=== PATIENT | male | born 1935 | race Caucasian/White ===

== ENCOUNTER 2016-08-24 09:40 | Outpatient (RCR) | payer MEDICARE, MEDICAID ==
[2015-08-19 00:38] VITALS: BP 131/61
[~2016-08-24 09:40] MED LIST: ACTOS 45MG45 MG/TAB PO; AMLOPIDINE PO; ATIVAN0.5 MG PO; ATIVAN1 M1 PO; ATROVENT I0.2 MG/1 M INH; BROVANA15 MCG/2 M IH; BROVANA15 MCG/2 M INH; BYSTOLIC10 MG PO; BYSTOLIC20 MG PO; CLOPIDOGREL PO; CORTISPORIN TC10 ML OT; DITROPAN XL5 MG PO; ED ZITHROM6 TAB/BOTT PO; EFFEXOR XR150 M1 PO; EFFEXOR XR150 MG PO; FAMVIR500 MG PO; HYDROCHLOROTH12.5 M2 PO; IPRATROPIUM BROM3 M1 IH; IPRATROPIUM BROM3 M1 INH; KENALOG0.5% TP; LANTUS PEN100 U/ML SC; LANTUS SOLOS100 U/ML SQ; LIPITOR20 MG PO; LISINOPRIL20 MG PO; LOTRISONE 0.05%1 CRE TP; MICROZIDE12.5 MG PO; NEXIUM 24HR20 MG PO; NEXIUM40 MG PO; NITROSTAT0.4 M1 SL; NORVASC 10MG10 MG PO; NORVASC 5MG5 MG/TAB PO; PLAVIX 75MG TAB75 MG PO; PREDNISONE20 M1 PO; PREDNISONE20 MG PO; PRINIVIL20 MG PO; PULMICORT0.5 MG/2 M INH; REMERON 15M15 MG/TA1 PO; SPIRIVA18 MCG IH; ZITHROMAX 250M250 MG PO
== END 2016-09-21 13:24 ==
LOC: OPPGERO 09:40
DX: F32.1 Major depressive disorder, single episode, moderate (principal)

== ENCOUNTER → 2016-11-19 | Outpatient (CLI) | payer MEDICARE, BC, MEDICAID | LOC: LAB 06:10 | DX: I10 Essential (primary) hypertension (principal); E11.40 Type 2 diabetes mellitus with diabetic neuropathy, unspecified ==

== ENCOUNTER → 2017-03-16 | Outpatient (CLI) | payer MEDICARE, BC, MEDICAID ==
[2015-08-19 00:38] VITALS: BP 131/61
== END ==
LOC: LAB 05:35
DX: I25.10 Atherosclerotic heart disease of native coronary artery without angina pectoris (principal); E11.9 Type 2 diabetes mellitus without complications; I10 Essential (primary) hypertension; Z12.5 Encounter for screening for malignant neoplasm of prostate

== ENCOUNTER → 2017-04-29 | Outpatient (CLI) | payer MEDICARE, MEDICAID ==
[2015-08-19 00:38] VITALS: BP 131/61
== END ==
LOC: LAB 06:15
DX: I10 Essential (primary) hypertension (principal)

== ENCOUNTER → 2017-05-20 | Outpatient (CLI) | payer MEDICARE, MEDICAID ==
[2015-08-19 00:38] VITALS: BP 131/61
== END ==
LOC: CARDREHAB 09:56
DX: G47.33 Obstructive sleep apnea (adult) (pediatric) (principal); R06.83 Snoring; R09.02 Hypoxemia; E66.9 Obesity, unspecified; Z68.38 Body mass index [BMI] 38.0-38.9, adult
CPT/HCPCS: G0399

== ENCOUNTER → 2017-07-13 | Outpatient (CLI) | payer MEDICARE, MEDICAID ==
[2015-08-19 00:38] VITALS: BP 131/61
[2017-07-13 07:59] LABS: HEMATOCRIT 36.8 % (42.0-52.0); HEMOGLOBIN 11.7 g/dL (13.5-18.0); MEAN CELL VOLUME 88 fl (78-100); MEAN CORPUSCULAR HEMOGLOBIN 28 pg (27-31); MEAN CORPUSCULAR HGB CONC 32 g/dL (33-37); MEAN PLATELET VOLUME 10.7 fl (7.4-10.4); PLATELET COUNT 256 K/mm3 (130-400); RED BLOOD COUNT 4.18 M/mm3 (4.20-5.60); RED CELL DISTRIBUTION WIDTH 16.7 % (11.5-14.5); WHITE BLOOD COUNT 6.4 K/mm3 (4.8-10.8)
[2017-07-13 08:01] LABS: ALBUMIN 3.3 g/dL (3.5-5.0); BUN/CREATININE RATIO 25.5 (6.0-26.0); POTASSIUM 4.2 mmol/L (3.6-5.0); TOTAL BILIRUBIN 0.4 mg/dL (0.2-1.3)
[2017-07-13 08:34] LABS: LYMPHOCYTE 10 % (20-51); MONOCYTE 8 % (3-10); NEUTROPHILS 75 % (42-75); OVALOCYTES 1+
== END ==
LOC: LAB 06:30
PROVIDERS: Internal Medicine
DX: E11.9 Type 2 diabetes mellitus without complications (principal); I25.10 Atherosclerotic heart disease of native coronary artery without angina pectoris; I10 Essential (primary) hypertension

== ENCOUNTER 2017-09-27 10:18 | Emergency (ER) | payer MEDICARE, MEDICAID ==
[~2017-09-27] VITALS: Wt 97.2 kg
[~2017-09-27 10:18] MED LIST changes: -ADVAIR DISKUS1 DS2 IH; -ALBUTEROL1.25 MG/3 IH; -BENZONATATE100 M2 PO; -CATAPRES0.2 M1 PO; -COLACE100 M1 PO; -DULCOLAX S10 MG/SUPP RC; -FIBERCON625 M1 PO; -GOOD NEIGH1200 MG/15 PO; -GOOD NEIGHBOR500 M2 PO; -LANTUS PEN100 U/ML; -LIPITOR20 M2 PO; -MIRALAX17 GM PO; -MUCINEX1200 MG PO; -MULTIVITAMIN1 SGL; -NEXIUM 40MG40 MG PO; -SINEMET 25-1001 EACH PO; -TYLENOL 325MG325 MG PO
[2017-09-27 13:27] LABS: URINE APPEARANCE CLEAR; URINE BILIRUBIN NEGATIVE (NEGATIVE); URINE BLOOD NEGATIVE (NEGATIVE); URINE COLOR YELLOW; URINE GLUCOSE NEGATIVE (NEGATIVE); URINE KETONE NEGATIVE (NEGATIVE); URINE LEUKOCYTE ESTERASE NEGATIVE (NEGATIVE); URINE MUCUS PRESENT (NOT PRESENT); URINE NITRATE NEGATIVE (NEGATIVE); URINE PROTEIN(semi-quant) 1+ mg/dL (NEGATIVE); URINE UROBILINOGEN NORMAL (NORMAL)
[2017-09-27] MEDS ORDERED: GOOD NEIGHBOR500 M2 PO (14:07)
[2017-09-27] MEDS ORDERED: ALBUTEROL1.25 MG/3 IH (14:08)
[2017-09-27] MEDS ORDERED: BENZONATATE100 M2 PO (14:10)
[2017-09-27] MEDS ORDERED: COLACE100 M1 PO (14:13)
[2017-09-27] MEDS ORDERED: CATAPRES0.2 M1 PO (14:13)
[2017-09-27] MEDS ORDERED: DULCOLAX S10 MG/SUPP RC (14:14)
[2017-09-27] MEDS ORDERED: FIBERCON625 M1 PO (14:15)
[2017-09-27] MEDS ORDERED: PREDNISONE20 MG PO (14:26)
[2017-09-27] MEDS ORDERED: IPRATROPIUM BROM3 M1 IH (14:26)
[2017-09-27] MEDS ORDERED: ADVAIR DISKUS1 DS2 IH (14:41)
[2017-09-27] MEDS ORDERED: HYDROCHLOROTH12.5 M2 PO (14:42)
[2017-09-27] MEDS ORDERED: LANTUS PEN100 U/ML (14:43)
[2017-09-27] MEDS ORDERED: GOOD NEIGH1200 MG/15 PO (14:44)
[2017-09-27] MEDS ORDERED: LIPITOR20 M2 PO (14:44)
[2017-09-27] MEDS ORDERED: MUCINEX1200 MG PO (14:45)
[2017-09-27] MEDS ORDERED: MIRALAX17 GM PO (14:45)
[2017-09-27] MEDS ORDERED: NEXIUM 40MG40 MG PO (14:46)
[2017-09-27] MEDS ORDERED: MULTIVITAMIN1 SGL (14:46)
[2017-09-27] MEDS ORDERED: SINEMET 25-1001 EACH PO (14:47)
[2017-09-27] MEDS ORDERED: TYLENOL 325MG325 MG PO (14:47)
[2017-09-27] MEDS ORDERED: LISINOPRIL20 MG PO (14:49)
[2017-09-27 15:10] VITALS: BP 160/75
== END 2017-09-27 15:28 | disposition home or self-care (01) ==
LOC: ED 10:18
PROVIDERS: Physician Assistant
DX: J43.9 Emphysema, unspecified (principal); Z99.81 Dependence on supplemental oxygen; I25.10 Atherosclerotic heart disease of native coronary artery without angina pectoris; I10 Essential (primary) hypertension; F32.9 Major depressive disorder, single episode, unspecified; F41.9 Anxiety disorder, unspecified; E11.40 Type 2 diabetes mellitus with diabetic neuropathy, unspecified; E78.5 Hyperlipidemia, unspecified; N40.0 Benign prostatic hyperplasia without lower urinary tract symptoms; Z88.5 Allergy status to narcotic agent; Z88.0 Allergy status to penicillin; Z88.2 Allergy status to sulfonamides; Z88.8 Allergy status to other drugs, medicaments and biological substances; Z79.02 Long term (current) use of antithrombotics/antiplatelets; Z79.4 Long term (current) use of insulin
CPT/HCPCS: A4340; A4354

== ENCOUNTER → 2017-09-27 | Outpatient (CLI) | payer MEDICARE, MEDICAID ==
[2015-08-19 00:38] VITALS: BP 131/61
[~2017-09-27] MED LIST changes: +ACTOS 15MG TAB15 MG PO; -ACTOS 45MG45 MG/TAB PO; +ADVAIR DISKUS1 DS2 IH; +ALBUTEROL1.25 MG/3 IH; +ATROVENT I0.2 MG/1 M IH; -ATROVENT I0.2 MG/1 M INH; +BENZONATATE100 M2 PO; +CATAPRES0.2 M1 PO; +COLACE100 M1 PO; +DULCOLAX S10 MG/SUPP RC; -EFFEXOR XR150 M1 PO; +EFFEXOR XR75 M2 PO; +FIBERCON625 M1 PO; +GOOD NEIGH1200 MG/15 PO; +GOOD NEIGHBOR500 M2 PO; +LANTUS PEN100 U/ML; +LIPITOR20 M2 PO; +MIRALAX17 GM PO; +MUCINEX1200 MG PO; +MULTIVITAMIN1 SGL; +NEXIUM 40MG40 MG PO; +SINEMET 25-1001 EACH PO; +TYLENOL 325MG325 MG PO
[2017-09-27 08:04] LABS: HEMATOCRIT 36.7 % (42.0-52.0); HEMOGLOBIN 11.6 g/dL (13.5-18.0); MEAN CELL VOLUME 90 fl (78-100); MEAN CORPUSCULAR HEMOGLOBIN 28 pg (27-31); MEAN CORPUSCULAR HGB CONC 32 g/dL (33-37); MEAN PLATELET VOLUME 10.7 fl (7.4-10.4); PLATELET COUNT 212 K/mm3 (130-400); RED BLOOD COUNT 4.08 M/mm3 (4.20-5.60); RED CELL DISTRIBUTION WIDTH 16.4 % (11.5-14.5); WHITE BLOOD COUNT 6.9 K/mm3 (4.8-10.8)
[2017-09-27 08:08] LABS: LYMPHOCYTE 8 % (20-51); MONOCYTE 4 % (3-10); NEUTROPHILS 82 % (42-75)
[2017-09-27 08:31] LABS: ALBUMIN 3.4 g/dL (3.5-5.0); BUN/CREATININE RATIO 18.6 (6.0-26.0); CALCIUM 8.7 mg/dL (8.4-10.2); POTASSIUM 3.8 mmol/L (3.6-5.0); TOTAL BILIRUBIN 0.3 mg/dL (0.2-1.3); TOTAL PROTEIN 6.3 g/dL (6.3-8.2)
== END ==
LOC: LAB 05:55
PROVIDERS: Internal Medicine
DX: I25.10 Atherosclerotic heart disease of native coronary artery without angina pectoris (principal); E11.9 Type 2 diabetes mellitus without complications; I10 Essential (primary) hypertension; J43.1 Panlobular emphysema; Z88.6 Allergy status to analgesic agent; Z88.0 Allergy status to penicillin; Z88.2 Allergy status to sulfonamides; Z88.8 Allergy status to other drugs, medicaments and biological substances

== ENCOUNTER → 2017-10-14 | Outpatient (CLI) | payer MEDICARE, MEDICAID ==
[2017-09-27 15:10] VITALS: BP 160/75
[~2017-10-14] MED LIST changes: +ADVAIR DISKUS1 DS2 IH; +ALBUTEROL1.25 MG/3 IH; -ATROVENT I0.2 MG/1 M IH; +ATROVENT NASAL15 ML IH; +AVEENO BATH1 EACH TP; +BENZONATATE100 M2 PO; +CATAPRES0.2 M1 PO; +CIPRO500 M1 PO; +COLACE100 M1 PO; +CYCLOBENZAPRINE10 M1 PO; +DULCOLAX S10 MG/SUPP RC; +FIBERCON625 M1 PO; +GOOD NEIGH1200 MG/15 PO; +ICY HOT CREAM35.4 GM TOP; +LANTUS PEN100 U/ML; +LIPITOR20 M2 PO; +MIRALAX17 GM PO; +MUCINEX1200 MG PO; +MULTIVITAMIN1 SGL; +NEXIUM 40MG40 MG PO; +SINEMET 25-1001 EACH PO; +TOPCARE PAIN R325 MG PO; +TYLENOL 500MG500 MG PO; +VIBRAMYCIN HYC100 MG PO
[2017-10-15 01:03] LABS: URINE APPEARANCE CLOUDY; URINE BILIRUBIN NEGATIVE (NEGATIVE); URINE BLOOD TRACE (NEGATIVE); URINE COLOR YELLOW; URINE GLUCOSE NEGATIVE (NEGATIVE); URINE KETONE NEGATIVE (NEGATIVE); URINE NITRATE NEGATIVE (NEGATIVE); URINE PROTEIN(semi-quant) TRACE mg/dL (NEGATIVE); URINE UROBILINOGEN NORMAL (NORMAL)
[2017-10-15 01:04] LABS: URINE LEUKOCYTE ESTERASE 2+ (NEGATIVE); URINE WBC >50 /hpf (0-3)
== END ==
LOC: LAB 23:00
PROVIDERS: Internal Medicine
DX: N39.0 Urinary tract infection, site not specified (principal); B96.89 Other specified bacterial agents as the cause of diseases classified elsewhere

== ENCOUNTER 2017-10-16 07:24 | Emergency (ER) | payer MEDICARE, MEDICAID ==
[~2017-10-16 07:24] MED LIST changes: -AVEENO BATH1 EACH TP; -CIPRO500 M1 PO; -CYCLOBENZAPRINE10 M1 PO; -ICY HOT CREAM35.4 GM TOP; -VIBRAMYCIN HYC100 MG PO
[2017-10-16] MEDS ORDERED: CIPRO500 M1 PO (07:40)
[2017-10-16] MEDS ORDERED: LIPITOR20 M2 PO (07:42)
[2017-10-16] MEDS ORDERED: CYCLOBENZAPRINE10 M1 PO (08:47)
[2017-10-16 09:18] VITALS: BP 186/83
[2017-10-17] MEDS ORDERED: AVEENO BATH1 EACH TP (17:39)
[2017-10-17] MEDS ORDERED: VIBRAMYCIN HYC100 MG PO (17:44)
[2017-10-17] MEDS ORDERED: ICY HOT CREAM35.4 GM TOP (17:47)
[2017-10-17] MEDS ORDERED: NEXIUM 40MG40 MG PO (17:59)
== END 2017-10-16 09:08 ==
LOC: ED 07:24
DX: M54.2 Cervicalgia (principal); M62.838 Other muscle spasm; Z88.5 Allergy status to narcotic agent; Z88.0 Allergy status to penicillin; Z88.2 Allergy status to sulfonamides; Z88.8 Allergy status to other drugs, medicaments and biological substances; N39.0 Urinary tract infection, site not specified; Z79.02 Long term (current) use of antithrombotics/antiplatelets

== ENCOUNTER 2017-10-17 15:18 | Emergency (ER) | payer MEDICARE, MEDICAID ==
[~2017-10-17] VITALS: Wt 92.5 kg
[~2017-10-17 15:18] MED LIST changes: +CIPRO500 M1 PO; +CYCLOBENZAPRINE10 M1 PO
[2017-10-17 17:31] LABS: HEMATOCRIT 38.7 % (42.0-52.0); HEMOGLOBIN 12.4 g/dL (13.5-18.0); MEAN CELL VOLUME 90 fl (78-100); MEAN CORPUSCULAR HEMOGLOBIN 29 pg (27-31); MEAN CORPUSCULAR HGB CONC 32 g/dL (33-37); MEAN PLATELET VOLUME 10.6 fl (7.4-10.4); PLATELET COUNT 283 K/mm3 (130-400); RED BLOOD COUNT 4.32 M/mm3 (4.20-5.60); RED CELL DISTRIBUTION WIDTH 16.1 % (11.5-14.5); WHITE BLOOD COUNT 16.1 K/mm3 (4.8-10.8)
[2017-10-17 17:37] LABS: ALBUMIN 3.6 g/dL (3.5-5.0); CALCIUM 8.6 mg/dL (8.4-10.2); POTASSIUM 4.4 mmol/L (3.6-5.0); TOTAL BILIRUBIN 0.5 mg/dL (0.2-1.3); TOTAL PROTEIN 7.4 g/dL (6.3-8.2)
[2017-10-17] MEDS ORDERED: AVEENO BATH1 EACH TP (17:39)
[2017-10-17] MEDS ORDERED: VIBRAMYCIN HYC100 MG PO (17:44)
[2017-10-17] MEDS ORDERED: ICY HOT CREAM35.4 GM TOP (17:47)
[2017-10-17 17:59] LABS: LYMPHOCYTE 5 % (20-51); MONOCYTE 4 % (3-10); NEUTROPHILS 91 % (42-75)
[2017-10-17] MEDS ORDERED: NEXIUM 40MG40 MG PO (17:59)
[2017-10-17 19:48] LABS: URINE APPEARANCE CLOUDY; URINE COLOR YELLOW; URINE PROTEIN(semi-quant) 2+ mg/dL (NEGATIVE)
[2017-10-17 19:49] LABS: URINE BILIRUBIN NEGATIVE (NEGATIVE); URINE BLOOD 250 ery/uL (NEGATIVE); URINE GLUCOSE NEGATIVE (NEGATIVE); URINE KETONE NEGATIVE (NEGATIVE); URINE LEUKOCYTE ESTERASE 2+ (NEGATIVE); URINE NITRATE NEGATIVE (NEGATIVE); URINE UROBILINOGEN NORMAL (NORMAL); URINE WBC >50 /hpf (0-3)
[2017-10-17 20:30] VITALS: BP 137/50
== END 2017-10-17 21:20 | disposition short-term general hospital (02) ==
LOC: ED 15:18
PROVIDERS: Nurse Practitioner Primary Care
DX: N39.0 Urinary tract infection, site not specified (principal); B95.62 Methicillin resistant Staphylococcus aureus infection as the cause of diseases classified elsewhere; M54.2 Cervicalgia; I25.10 Atherosclerotic heart disease of native coronary artery without angina pectoris; I10 Essential (primary) hypertension; E11.9 Type 2 diabetes mellitus without complications; J44.9 Chronic obstructive pulmonary disease, unspecified; Z86.73 Personal history of transient ischemic attack (TIA), and cerebral infarction without residual deficits; F41.9 Anxiety disorder, unspecified; E78.5 Hyperlipidemia, unspecified; Z88.0 Allergy status to penicillin; Z88.2 Allergy status to sulfonamides; Z79.02 Long term (current) use of antithrombotics/antiplatelets; Z88.5 Allergy status to narcotic agent; Z88.8 Allergy status to other drugs, medicaments and biological substances; Z79.4 Long term (current) use of insulin
CPT/HCPCS: J3010; J3370; J7030; J7050

== ENCOUNTER 2017-10-26 13:56 | Inpatient (IN) | payer MEDICARE, MEDICAID ==
[~2017-10-26] VITALS: Ht 170.2 cm; Wt 204.0 kg
[~2017-10-26 13:56] MED LIST changes: +AVEENO BATH1 EACH TP; +ICY HOT CREAM35.4 GM TOP; +VIBRAMYCIN HYC100 MG PO
[2017-10-26] MEDS ORDERED: FLOMAX0.4 MG PO (14:36)
[2017-10-26] MEDS ORDERED: NOVOLOG 100U100 U/ML SQ (14:36)
[2017-10-26 14:37] VITALS: BP 129/63
[2017-10-26] MEDS ORDERED: TYLENOL 325MG325 MG PO (14:37)
[2017-10-26] MEDS ORDERED: LANTUS PEN100 U/ML SQ (14:37)
[2017-10-26] MEDS ORDERED: AMLODIPINE BESY10 MG PO (14:38)
[2017-10-26] MEDS ORDERED: IPRATROPIUM BROM3 M1 IH (14:38)
[2017-10-26] MEDS ORDERED: ATORVASTATIN CA20 MG PO (14:39)
[2017-10-26] MEDS ORDERED: BROVANA15 MCG/2 M IH (14:40)
[2017-10-26] MEDS ORDERED: BUDESONIDE0.5 MG/2 M IH (14:40)
[2017-10-26] MEDS ORDERED: BYSTOLIC20 MG PO (14:40)
[2017-10-26] MEDS ORDERED: COLACE100 M1 PO (14:42)
[2017-10-26] MEDS ORDERED: MIRALAX17 GM PO (14:45)
[2017-10-26 15:37] VITALS: BP 129/63
[2017-10-26 16:53] LABS: BUN/CREATININE RATIO 17.9 (6.0-26.0); CALCIUM 8.7 mg/dL (8.4-10.2); POTASSIUM 4.1 mmol/L (3.6-5.0)
[2017-10-26 17:12] LABS: HEMATOCRIT 33.2 % (42.0-52.0); HEMOGLOBIN 10.6 g/dL (13.5-18.0); MEAN CELL VOLUME 90 fl (78-100); MEAN CORPUSCULAR HEMOGLOBIN 29 pg (27-31); MEAN CORPUSCULAR HGB CONC 32 g/dL (33-37); MEAN PLATELET VOLUME 9.9 fl (7.4-10.4); RED CELL DISTRIBUTION WIDTH 15.1 % (11.5-14.5); WHITE BLOOD COUNT 8.1 K/mm3 (4.8-10.8)
[2017-10-26 18:44] VITALS: BP 152/70
[2017-10-26 20:38] LABS: PLATELET COUNT 575 K/mm3 (130-400)
[2017-10-26 20:53] LABS: LYMPHOCYTE 11 % (20-51); MONOCYTE 5 % (3-10); NEUTROPHILS 83 % (42-75)
[2017-10-26 20:54] LABS: HYPOCHROMIA 1+
[2017-10-27 06:23] VITALS: BP 164/75
[2017-10-27 18:32] VITALS: BP 113/43
[2017-10-28 06:25] VITALS: BP 126/58
[2017-10-28 07:49] LABS: URINE APPEARANCE CLOUDY; URINE BILIRUBIN NEGATIVE (NEGATIVE); URINE COLOR YELLOW; URINE GLUCOSE NEGATIVE (NEGATIVE); URINE KETONE NEGATIVE (NEGATIVE); URINE NITRATE NEGATIVE (NEGATIVE); URINE PROTEIN(semi-quant) TRACE mg/dL (NEGATIVE); URINE UROBILINOGEN NORMAL (NORMAL)
[2017-10-28 07:50] LABS: URINE BLOOD TRACE (NEGATIVE); URINE LEUKOCYTE ESTERASE TRACE (NEGATIVE); URINE WBC 31-50 /hpf (0-3)
[2017-10-28 13:18] VITALS: BP 126/58
== END 2017-10-28 14:26 | DRG 948 ==
LOC: MED/SURG 13:56
PROVIDERS: Nurse Practitioner Primary Care; ADMIT Internal Medicine
DX: R53.81 Other malaise (principal); M46.22 Osteomyelitis of vertebra, cervical region; E11.9 Type 2 diabetes mellitus without complications; I10 Essential (primary) hypertension; J44.9 Chronic obstructive pulmonary disease, unspecified; G20 Parkinson's disease; Z86.73 Personal history of transient ischemic attack (TIA), and cerebral infarction without residual deficits; Z79.4 Long term (current) use of insulin; Z87.891 Personal history of nicotine dependence; Z88.0 Allergy status to penicillin
CPT/HCPCS: J1815; J3370; J7050

== ENCOUNTER → 2017-12-16 | Outpatient (CLI) | payer MEDICARE, MEDICAID ==
[~2017-12-16] MED LIST changes: +AMLODIPINE BESY10 MG PO; +ATORVASTATIN CA20 MG PO; +BUDESONIDE0.5 MG/2 M IH; +FLOMAX0.4 MG PO; +LANTUS PEN100 U/ML SQ; +NOVOLOG 100U100 U/ML SQ; +TYLENOL 325MG325 MG PO
[2017-12-16 14:22] LABS: FOLATE (FOLIC ACID) 5.7 ng/mL (7.0-31.4)
== END ==
LOC: LAB 06:30
PROVIDERS: Psychiatry & Neurology Neurology
DX: G31.84 Mild cognitive impairment of uncertain or unknown etiology (principal); G20 Parkinson's disease

== ENCOUNTER → 2017-12-16 | Outpatient (CLI) | payer MEDICARE, MEDICAID ==
[~2017-12-16] VITALS: Ht 170.2 cm; Wt 204.0 kg
[2017-12-16 09:55] VITALS: BP 136/62
== END ==
LOC: AMSURD 09:49
DX: Z45.2 Encounter for adjustment and management of vascular access device (principal)

== ENCOUNTER 2017-12-27 09:19 | Outpatient (RCR) | payer MEDICARE, MEDICAID ==
[2017-12-16 09:55] VITALS: BP 136/62
== END 2018-01-19 13:46 ==
LOC: OPPGERO 09:19
DX: F33.1 Major depressive disorder, recurrent, moderate (principal); I10 Essential (primary) hypertension; J44.9 Chronic obstructive pulmonary disease, unspecified; E11.40 Type 2 diabetes mellitus with diabetic neuropathy, unspecified; Z87.891 Personal history of nicotine dependence; Z79.899 Other long term (current) drug therapy

== ENCOUNTER → 2017-12-28 | Outpatient (CLI) | payer MEDICARE, MEDICAID ==
[2017-12-16 09:55] VITALS: BP 136/62
== END ==
LOC: RAD 07:45 → LAB 07:52 → RAD 07:52
DX: M46.42 Discitis, unspecified, cervical region (principal); M48.02 Spinal stenosis, cervical region; R60.0 Localized edema

== ENCOUNTER 2018-01-20 10:51 | Outpatient (RCR) | payer MEDICARE, MEDICAID ==
[2017-12-16 09:55] VITALS: BP 136/62
[~2018-01-20 10:51] MED LIST changes: +PRINIVIL10 M1 PO
[2018-02-15] MEDS ORDERED: GOOD NEIGHBOR500 M2 PO (17:20)
[2018-02-15] MEDS ORDERED: ADVAIR DISKUS1 DS2 IH (17:21)
[2018-02-15] MEDS ORDERED: ATIVAN1 M1 PO (17:22)
[2018-02-15] MEDS ORDERED: ATROVENT I0.2 MG/1 M IH (17:24)
[2018-02-15] MEDS ORDERED: AVEENO BATH1 EACH TOP (17:25)
[2018-02-15] MEDS ORDERED: BETAMETHASONE D0.05% TOP (17:26)
[2018-02-15] MEDS ORDERED: DULCOLAX S10 MG/SUPP RC (17:28)
[2018-02-15] MEDS ORDERED: FIBERCON625 M1 PO (17:29)
[2018-02-15] MEDS ORDERED: LEVEMIR FLEX100 U/ML SQ (17:30)
[2018-02-15] MEDS ORDERED: LOTRISONE CREAM15 G1 TOP (17:32)
[2018-02-15] MEDS ORDERED: MICONAZOLE NITR15 GM TOP (17:33)
[2018-02-15] MEDS ORDERED: ICY HOT CREAM35.4 GM TOP (17:33)
[2018-02-15] MEDS ORDERED: MUCINEX 60600 MG/TA1 PO (17:34)
[2018-02-15] MEDS ORDERED: MULTIVITAMIN1 SGL PO (17:35)
[2018-02-15] MEDS ORDERED: MEMANTINE HCL10 MG PO (17:36)
[2018-02-15] MEDS ORDERED: ULTRAM50 M1 PO (17:42)
[2018-02-15] MEDS ORDERED: VENLAFAXINE HYD75 MG PO (17:43)
== END 2018-02-17 13:09 ==
LOC: OPPGERO 10:51
DX: F33.1 Major depressive disorder, recurrent, moderate (principal); E11.40 Type 2 diabetes mellitus with diabetic neuropathy, unspecified; Z79.4 Long term (current) use of insulin; J44.9 Chronic obstructive pulmonary disease, unspecified; I10 Essential (primary) hypertension; G47.30 Sleep apnea, unspecified; Z79.899 Other long term (current) drug therapy; Z63.4 Disappearance and death of family member; Z60.0 Problems of adjustment to life-cycle transitions; Z63.79 Other stressful life events affecting family and household; Z87.891 Personal history of nicotine dependence

== ENCOUNTER → 2018-01-27 | Outpatient (CLI) | payer MEDICARE, MEDICAID ==
[2017-12-16 09:55] VITALS: BP 136/62
[~2018-01-27] MED LIST changes: -PRINIVIL10 M1 PO
[2018-01-27 10:10] LABS: HEMATOCRIT 33.6 % (42.0-52.0); HEMOGLOBIN 10.7 g/dL (13.5-18.0); MEAN CELL VOLUME 91 fl (78-100); MEAN CORPUSCULAR HEMOGLOBIN 29 pg (27-31); MEAN CORPUSCULAR HGB CONC 32 g/dL (33-37); MEAN PLATELET VOLUME 9.8 fl (7.4-10.4); PLATELET COUNT 318 K/mm3 (130-400); RED CELL DISTRIBUTION WIDTH 15.5 % (11.5-14.5); WHITE BLOOD COUNT 7.7 K/mm3 (4.8-10.8)
[2018-01-27 10:36] LABS: ALBUMIN 3.9 g/dL (3.5-5.0); BUN/CREATININE RATIO 14.9 (6.0-26.0); CALCIUM 8.5 mg/dL (8.4-10.2); POTASSIUM 4.1 mmol/L (3.6-5.0); TOTAL BILIRUBIN 0.4 mg/dL (0.2-1.3); TOTAL PROTEIN 7.6 g/dL (6.3-8.2)
[2018-01-27 10:45] LABS: URINE APPEARANCE HAZY; URINE COLOR YELLOW; URINE GLUCOSE NEGATIVE (NEGATIVE); URINE PROTEIN(semi-quant) TRACE mg/dL (NEGATIVE)
[2018-01-27 10:46] LABS: URINE BILIRUBIN NEGATIVE (NEGATIVE); URINE BLOOD TRACE (NEGATIVE); URINE KETONE NEGATIVE (NEGATIVE); URINE LEUKOCYTE ESTERASE 2+ (NEGATIVE); URINE NITRATE NEGATIVE (NEGATIVE); URINE UROBILINOGEN NORMAL (NORMAL); URINE WBC >50 /hpf (0-3)
[2018-01-27 10:51] LABS: LYMPHOCYTE 7 % (20-51); MONOCYTE 8 % (3-10); NEUTROPHILS 77 % (42-75)
== END ==
LOC: LAB 09:46
PROVIDERS: Internal Medicine
DX: I25.10 Atherosclerotic heart disease of native coronary artery without angina pectoris (principal); E11.9 Type 2 diabetes mellitus without complications; B99.9 Unspecified infectious disease

== ENCOUNTER 2018-02-15 16:41 | Emergency (ER) | payer MEDICARE, MEDICAID ==
[~2018-02-15] VITALS: Wt 93.0 kg
[~2018-02-15 16:41] MED LIST changes: +PRINIVIL10 M1 PO
[2018-02-15 17:15] LABS: HEMATOCRIT 31.7 % (42.0-52.0); MEAN CELL VOLUME 90 fl (78-100); MEAN CORPUSCULAR HEMOGLOBIN 28 pg (27-31); MEAN CORPUSCULAR HGB CONC 32 g/dL (33-37); MEAN PLATELET VOLUME 10.1 fl (7.4-10.4); PLATELET COUNT 282 K/mm3 (130-400); RED BLOOD COUNT 3.54 M/mm3 (4.20-5.60); WHITE BLOOD COUNT 10.8 K/mm3 (4.8-10.8)
[2018-02-15] MEDS ORDERED: GOOD NEIGHBOR500 M2 PO (17:20)
[2018-02-15] MEDS ORDERED: ADVAIR DISKUS1 DS2 IH (17:21)
[2018-02-15] MEDS ORDERED: ATIVAN1 M1 PO (17:22)
[2018-02-15] MEDS ORDERED: ATROVENT I0.2 MG/1 M IH (17:24)
[2018-02-15] MEDS ORDERED: AVEENO BATH1 EACH TOP (17:25)
[2018-02-15] MEDS ORDERED: BETAMETHASONE D0.05% TOP (17:26)
[2018-02-15 17:27] LABS: ALBUMIN 3.5 g/dL (3.5-5.0); BUN/CREATININE RATIO 19.9 (6.0-26.0); CALCIUM 8.1 mg/dL (8.4-10.2); POTASSIUM 4.2 mmol/L (3.6-5.0); TOTAL BILIRUBIN 0.2 mg/dL (0.2-1.3); TOTAL PROTEIN 7.3 g/dL (6.3-8.2)
[2018-02-15] MEDS ORDERED: DULCOLAX S10 MG/SUPP RC (17:28)
[2018-02-15] MEDS ORDERED: FIBERCON625 M1 PO (17:29)
[2018-02-15] MEDS ORDERED: LEVEMIR FLEX100 U/ML SQ (17:30)
[2018-02-15] MEDS ORDERED: LOTRISONE CREAM15 G1 TOP (17:32)
[2018-02-15] MEDS ORDERED: MICONAZOLE NITR15 GM TOP (17:33)
[2018-02-15] MEDS ORDERED: ICY HOT CREAM35.4 GM TOP (17:33)
[2018-02-15] MEDS ORDERED: MUCINEX 60600 MG/TA1 PO (17:34)
[2018-02-15 17:35] LABS: CKMB ISOENZYME 1.3 ng/mL (0.6-3.5)
[2018-02-15] MEDS ORDERED: MULTIVITAMIN1 SGL PO (17:35)
[2018-02-15 17:36] LABS: LYMPHOCYTE 10 % (20-51); MONOCYTE 11 % (3-10); NEUTROPHILS 78 % (42-75); TROPONIN-I < 0.03 ng/mL (0.00-0.06)
[2018-02-15] MEDS ORDERED: MEMANTINE HCL10 MG PO (17:36)
[2018-02-15] MEDS ORDERED: ULTRAM50 M1 PO (17:42)
[2018-02-15] MEDS ORDERED: VENLAFAXINE HYD75 MG PO (17:43)
[2018-02-15 21:21] LABS: CKMB ISOENZYME 1.3 ng/mL (0.6-3.5)
[2018-02-15 21:23] LABS: TROPONIN-I < 0.03 ng/mL (0.00-0.06)
[2018-02-15 21:42] VITALS: BP 135/71
== END 2018-02-15 21:42 | disposition home or self-care (01) ==
LOC: ED 16:41
PROVIDERS: Nurse Practitioner Primary Care
DX: I20.8 Other forms of angina pectoris (principal); J44.9 Chronic obstructive pulmonary disease, unspecified; I10 Essential (primary) hypertension; Z95.5 Presence of coronary angioplasty implant and graft; E11.9 Type 2 diabetes mellitus without complications; Z79.4 Long term (current) use of insulin; E78.5 Hyperlipidemia, unspecified; Z99.81 Dependence on supplemental oxygen; Z86.73 Personal history of transient ischemic attack (TIA), and cerebral infarction without residual deficits; N28.9 Disorder of kidney and ureter, unspecified

== ENCOUNTER 2018-02-20 09:43 | Outpatient (RCR) | payer MEDICARE, MEDICAID ==
[~2018-02-20 09:43] MED LIST changes: +ATROVENT I0.2 MG/1 M IH; +AVEENO BATH1 EACH TOP; +BETAMETHASONE D0.05% TOP; +GOOD NEIGHBOR500 M2 PO; +LEVEMIR FLEX100 U/ML SQ; +LOTRISONE CREAM15 G1 TOP; +MEMANTINE HCL10 MG PO; +MICONAZOLE NITR15 GM TOP; +MUCINEX 60600 MG/TA1 PO; +MULTIVITAMIN1 SGL PO; +ULTRAM50 M1 PO; +VENLAFAXINE HYD75 MG PO
== END 2018-03-21 14:21 ==
LOC: OPPGERO 09:43
DX: F33.1 Major depressive disorder, recurrent, moderate (principal); Z63.4 Disappearance and death of family member; Z60.0 Problems of adjustment to life-cycle transitions; Z63.8 Other specified problems related to primary support group; E11.9 Type 2 diabetes mellitus without complications; M50.30 Other cervical disc degeneration, unspecified cervical region; G62.9 Polyneuropathy, unspecified; J44.9 Chronic obstructive pulmonary disease, unspecified; I10 Essential (primary) hypertension; G47.30 Sleep apnea, unspecified; Z86.14 Personal history of Methicillin resistant Staphylococcus aureus infection; Z79.4 Long term (current) use of insulin; Z79.899 Other long term (current) drug therapy

== ENCOUNTER → 2018-03-14 | Outpatient (CLI) | payer MEDICARE, MEDICAID ==
[2018-02-15 21:42] VITALS: BP 135/71
[2018-03-14 16:37] LABS: URINE APPEARANCE BLOODY; URINE COLOR BROWN
[2018-03-14 16:38] LABS: URINE BLOOD 250 ery/uL (NEGATIVE); URINE GLUCOSE NEGATIVE (NEGATIVE); URINE KETONE NEGATIVE (NEGATIVE); URINE LEUKOCYTE ESTERASE 2+ (NEGATIVE); URINE PROTEIN(semi-quant) 3+ mg/dL (NEGATIVE); URINE UROBILINOGEN NORMAL (NORMAL); URINE WBC >50 /hpf (0-3)
== END ==
LOC: LAB 15:24
PROVIDERS: Internal Medicine
DX: N39.0 Urinary tract infection, site not specified (principal)

== ENCOUNTER 2018-03-22 09:44 | Outpatient (RCR) | payer MEDICARE, MEDICAID | END 2018-04-21 13:43 | LOC: OPPGERO 09:44 | DX: F33.1 Major depressive disorder, recurrent, moderate (principal); E11.9 Type 2 diabetes mellitus without complications; G62.9 Polyneuropathy, unspecified; M53.80 Other specified dorsopathies, site unspecified; J44.9 Chronic obstructive pulmonary disease, unspecified; I10 Essential (primary) hypertension; G47.30 Sleep apnea, unspecified; Z60.0 Problems of adjustment to life-cycle transitions; F43.20 Adjustment disorder, unspecified; Z63.8 Other specified problems related to primary support group; Z79.01 Long term (current) use of anticoagulants; Z79.4 Long term (current) use of insulin; Z79.899 Other long term (current) drug therapy ==

== ENCOUNTER → 2018-04-11 | Outpatient (CLI) | payer MEDICARE, MEDICAID ==
[2018-04-11 20:47] LABS: URINE APPEARANCE HAZY; URINE COLOR YELLOW
[2018-04-11 20:48] LABS: PH-URINE 5.5 (5.0 - 8.0); URINE BILIRUBIN NEGATIVE (NEGATIVE); URINE BLOOD TRACE (NEGATIVE); URINE GLUCOSE NEGATIVE (NEGATIVE); URINE KETONE NEGATIVE (NEGATIVE); URINE LEUKOCYTE ESTERASE 1+ (NEGATIVE); URINE NITRATE NEGATIVE (NEGATIVE); URINE PROTEIN(semi-quant) TRACE mg/dL (NEGATIVE); URINE UROBILINOGEN NORMAL (NORMAL); URINE WBC 16-30 /hpf (0-3)
== END ==
LOC: LAB 18:48
PROVIDERS: Internal Medicine
DX: R41.82 Altered mental status, unspecified (principal)

== ENCOUNTER → 2018-04-14 | Outpatient (CLI) | payer MEDICARE, MEDICAID | LOC: LAB 07:30 | DX: N39.0 Urinary tract infection, site not specified (principal) ==

== ENCOUNTER 2018-04-25 09:32 | Outpatient (RCR) | payer MEDICARE, MEDICAID | END 2018-05-19 14:04 | LOC: OPPGERO 09:32 | DX: F33.1 Major depressive disorder, recurrent, moderate (principal); E11.42 Type 2 diabetes mellitus with diabetic polyneuropathy; I10 Essential (primary) hypertension; G47.30 Sleep apnea, unspecified; M53.9 Dorsopathy, unspecified; J44.9 Chronic obstructive pulmonary disease, unspecified; Z63.4 Disappearance and death of family member; Z60.0 Problems of adjustment to life-cycle transitions; Z63.8 Other specified problems related to primary support group; Z79.01 Long term (current) use of anticoagulants; Z79.4 Long term (current) use of insulin; Z79.899 Other long term (current) drug therapy ==

== ENCOUNTER → 2018-04-26 | Outpatient (CLI) | payer MEDICARE, MEDICAID ==
[2018-04-26 05:39] LABS: ALBUMIN 3.3 g/dL (3.5-5.0); CALCIUM 8.8 mg/dL (8.4-10.2); POTASSIUM 4.2 mmol/L (3.6-5.0); TOTAL BILIRUBIN 0.2 mg/dL (0.2-1.3); TOTAL PROTEIN 5.8 g/dL (6.3-8.2)
[2018-04-26 05:41] LABS: HEMATOCRIT 30.5 % (42.0-52.0); MEAN CELL VOLUME 87 fl (78-100); MEAN CORPUSCULAR HEMOGLOBIN 28 pg (27-31); MEAN CORPUSCULAR HGB CONC 33 g/dL (33-37); MEAN PLATELET VOLUME 10.7 fl (7.4-10.4); PLATELET COUNT 261 K/mm3 (130-400); RED BLOOD COUNT 3.52 M/mm3 (4.20-5.60); WHITE BLOOD COUNT 7.5 K/mm3 (4.8-10.8)
[2018-04-26 06:24] LABS: LYMPHOCYTE 11 % (20-51); MONOCYTE 7 % (3-10); NEUTROPHILS 75 % (42-75); OVALOCYTES 1+
== END ==
LOC: LAB 05:05
PROVIDERS: Internal Medicine
DX: E11.9 Type 2 diabetes mellitus without complications (principal); I25.10 Atherosclerotic heart disease of native coronary artery without angina pectoris; I10 Essential (primary) hypertension; G54.1 Lumbosacral plexus disorders; J43.9 Emphysema, unspecified

== ENCOUNTER 2018-05-22 09:27 | Outpatient (RCR) | payer MEDICARE, MEDICAID | END 2018-06-21 14:20 | LOC: OPPGERO 09:27 | DX: F33.1 Major depressive disorder, recurrent, moderate (principal); E11.40 Type 2 diabetes mellitus with diabetic neuropathy, unspecified; J44.9 Chronic obstructive pulmonary disease, unspecified; I10 Essential (primary) hypertension; G47.30 Sleep apnea, unspecified; Z63.8 Other specified problems related to primary support group; Z60.0 Problems of adjustment to life-cycle transitions; Z79.01 Long term (current) use of anticoagulants; Z79.4 Long term (current) use of insulin; Z79.899 Other long term (current) drug therapy ==

== ENCOUNTER → 2018-06-17 | Outpatient (CLI) | payer MEDICARE, MEDICAID ==
[2018-06-17 15:39] LABS: URINE APPEARANCE CLOUDY; URINE COLOR YELLOW
[2018-06-17 15:40] LABS: URINE BILIRUBIN NEGATIVE (NEGATIVE); URINE BLOOD 50 ery/uL (NEGATIVE); URINE KETONE NEGATIVE (NEGATIVE); URINE LEUKOCYTE ESTERASE 2+ (NEGATIVE); URINE NITRATE NEGATIVE (NEGATIVE); URINE PROTEIN(semi-quant) 1+ mg/dL (NEGATIVE); URINE UROBILINOGEN NORMAL (NORMAL); URINE WBC >50 /hpf (0-3)
== END ==
LOC: LAB 14:23
PROVIDERS: Internal Medicine
DX: R41.0 Disorientation, unspecified (principal); N39.0 Urinary tract infection, site not specified

== ENCOUNTER → 2018-06-26 | Outpatient (CLI) | payer MEDICARE, MEDICAID ==
[2018-06-26 11:53] LABS: PH-URINE 6.5 (5.0 - 8.0); URINE APPEARANCE CLOUDY; URINE BILIRUBIN NEGATIVE (NEGATIVE); URINE BLOOD 50 ery/uL (NEGATIVE); URINE COLOR YELLOW; URINE GLUCOSE NEGATIVE (NEGATIVE); URINE KETONE NEGATIVE (NEGATIVE); URINE LEUKOCYTE ESTERASE 2+ (NEGATIVE); URINE NITRATE POSITIVE (NEGATIVE); URINE PROTEIN(semi-quant) 2+ mg/dL (NEGATIVE); URINE UROBILINOGEN NORMAL (NORMAL)
== END ==
LOC: LAB 10:09
PROVIDERS: Internal Medicine
DX: N39.0 Urinary tract infection, site not specified (principal); B96.89 Other specified bacterial agents as the cause of diseases classified elsewhere

== ENCOUNTER 2018-07-23 10:50 | Emergency (ER) | payer MEDICARE, MEDICAID ==
[~2018-07-23] VITALS: Wt 88.9 kg
[2018-07-23] MEDS ORDERED: ZYRTEC ALLERGY10 MG PO (11:41)
[2018-07-23] MEDS ORDERED: ATARAX 10MG10 MG/TAB PO (11:44)
[2018-07-23] MEDS ORDERED: ACIDOPHILUS LA1 EAC1 PO (11:45)
[2018-07-23] MEDS ORDERED: PRINIVIL10 M1 PO (11:45)
[2018-07-23] MEDS ORDERED: LIPITOR20 M2 PO (11:45)
[2018-07-23] MEDS ORDERED: MIRALAX17 GM PO (11:46)
[2018-07-23] MEDS ORDERED: MUCINEX1200 MG PO (11:46)
[2018-07-23 12:04] LABS: HEMATOCRIT 36.2 % (42.0-52.0); HEMOGLOBIN 11.6 g/dL (13.5-18.0); MEAN CELL VOLUME 87 fl (78-100); MEAN CORPUSCULAR HEMOGLOBIN 28 pg (27-31); MEAN CORPUSCULAR HGB CONC 32 g/dL (33-37); MEAN PLATELET VOLUME 10.7 fl (7.4-10.4); PLATELET COUNT 310 K/mm3 (130-400); RED BLOOD COUNT 4.14 M/mm3 (4.20-5.60); RED CELL DISTRIBUTION WIDTH 15.5 % (11.5-14.5); WHITE BLOOD COUNT 9.6 K/mm3 (4.8-10.8)
[2018-07-23 12:21] LABS: ALBUMIN 3.9 g/dL (3.5-5.0); CALCIUM 8.6 mg/dL (8.4-10.2); POTASSIUM 4.5 mmol/L (3.6-5.0); TOTAL BILIRUBIN 0.5 mg/dL (0.2-1.3); TOTAL PROTEIN 7.1 g/dL (6.3-8.2)
[2018-07-23 12:26] LABS: LYMPHOCYTE 6 % (20-51); MONOCYTE 9 % (3-10); NEUTROPHILS 80 % (42-75); POLYCHROMASIA 1+
[2018-07-23 14:50] VITALS: BP 128/63
== END 2018-07-23 13:39 | disposition home or self-care (01) ==
LOC: ED 10:50
PROVIDERS: Family Medicine
DX: E86.0 Dehydration (principal); E11.22 Type 2 diabetes mellitus with diabetic chronic kidney disease; I12.9 Hypertensive chronic kidney disease with stage 1 through stage 4 chronic kidney disease, or unspecified chronic kidney disease; N18.9 Chronic kidney disease, unspecified; I25.10 Atherosclerotic heart disease of native coronary artery without angina pectoris; Z95.5 Presence of coronary angioplasty implant and graft; E78.5 Hyperlipidemia, unspecified; G20 Parkinson's disease; F02.80 Dementia in other diseases classified elsewhere, unspecified severity, without behavioral disturbance, psychotic disturbance, mood disturbance, and anxiety; G47.30 Sleep apnea, unspecified; Z79.02 Long term (current) use of antithrombotics/antiplatelets; Z79.899 Other long term (current) drug therapy

== ENCOUNTER 2018-07-29 05:14 | Emergency (ER) | payer MEDICARE, MEDICAID ==
[~2018-07-29] VITALS: Ht 172.7 cm; Wt 89.9 kg
[~2018-07-29 05:14] MED LIST changes: +ACIDOPHILUS LA1 EAC1 PO; +ATARAX 10MG10 MG/TAB PO; +ZYRTEC ALLERGY10 MG PO
[2018-07-29 06:27] LABS: HEMATOCRIT 35.1 % (42.0-52.0); HEMOGLOBIN 11.3 g/dL (13.5-18.0); MEAN CELL VOLUME 87 fl (78-100); MEAN CORPUSCULAR HEMOGLOBIN 28 pg (27-31); MEAN CORPUSCULAR HGB CONC 32 g/dL (33-37); MEAN PLATELET VOLUME 10.3 fl (7.4-10.4); PLATELET COUNT 274 K/mm3 (130-400); RED BLOOD COUNT 4.02 M/mm3 (4.20-5.60); RED CELL DISTRIBUTION WIDTH 15.3 % (11.5-14.5); WHITE BLOOD COUNT 8.8 K/mm3 (4.8-10.8)
[2018-07-29 06:39] LABS: CALCIUM 8.6 mg/dL (8.4-10.2); POTASSIUM 4.2 mmol/L (3.6-5.0)
[2018-07-29 06:56] LABS: LYMPHOCYTE 12 % (20-51); MONOCYTE 10 % (3-10); NEUTROPHILS 72 % (42-75)
[2018-07-29 07:03] LABS: URINE APPEARANCE HAZY; URINE BILIRUBIN NEGATIVE (NEGATIVE); URINE BLOOD TRACE (NEGATIVE); URINE COLOR YELLOW; URINE GLUCOSE NEGATIVE (NEGATIVE); URINE KETONE NEGATIVE (NEGATIVE); URINE LEUKOCYTE ESTERASE 2+ (NEGATIVE); URINE NITRATE NEGATIVE (NEGATIVE); URINE PROTEIN(semi-quant) 1+ mg/dL (NEGATIVE); URINE UROBILINOGEN NORMAL (NORMAL); URINE WBC >50 /hpf (0-3)
[2018-07-29] MEDS ORDERED: CEPHALEXIN500 M1 PO (12:43)
[2018-07-29 13:08] VITALS: BP 141/68
== END 2018-07-29 13:09 | disposition home or self-care (01) ==
LOC: ED 05:14
PROVIDERS: Family Medicine
DX: H51.0 Palsy (spasm) of conjugate gaze (principal); E11.9 Type 2 diabetes mellitus without complications; I10 Essential (primary) hypertension; N30.90 Cystitis, unspecified without hematuria; R06.2 Wheezing; I25.10 Atherosclerotic heart disease of native coronary artery without angina pectoris; Z95.5 Presence of coronary angioplasty implant and graft; N28.9 Disorder of kidney and ureter, unspecified; J44.9 Chronic obstructive pulmonary disease, unspecified; Z86.73 Personal history of transient ischemic attack (TIA), and cerebral infarction without residual deficits; E78.5 Hyperlipidemia, unspecified; G20 Parkinson's disease; F02.80 Dementia in other diseases classified elsewhere, unspecified severity, without behavioral disturbance, psychotic disturbance, mood disturbance, and anxiety; Z79.02 Long term (current) use of antithrombotics/antiplatelets; Z79.899 Other long term (current) drug therapy; Z87.891 Personal history of nicotine dependence; Z79.4 Long term (current) use of insulin; G47.30 Sleep apnea, unspecified
CPT/HCPCS: J0696

== ENCOUNTER 2018-08-18 07:51 | Emergency (ER) | payer MEDICARE, MEDICAID ==
[~2018-08-18] VITALS: Wt 89.9 kg
[~2018-08-18 07:51] MED LIST changes: +CEPHALEXIN500 M1 PO
[2018-08-18 09:06] LABS: HEMATOCRIT 37.8 % (42.0-52.0); HEMOGLOBIN 11.9 g/dL (13.5-18.0); MEAN CELL VOLUME 89 fl (78-100); MEAN CORPUSCULAR HEMOGLOBIN 28 pg (27-31); MEAN CORPUSCULAR HGB CONC 32 g/dL (33-37); MEAN PLATELET VOLUME 10.5 fl (7.4-10.4); PLATELET COUNT 314 K/mm3 (130-400); RED BLOOD COUNT 4.23 M/mm3 (4.20-5.60); RED CELL DISTRIBUTION WIDTH 15.8 % (11.5-14.5); WHITE BLOOD COUNT 11.7 K/mm3 (4.8-10.8)
[2018-08-18 09:23] LABS: ALBUMIN 4.2 g/dL (3.5-5.0); CALCIUM 9.2 mg/dL (8.4-10.2); POTASSIUM 4.9 mmol/L (3.6-5.0); TOTAL BILIRUBIN 0.3 mg/dL (0.2-1.3); TOTAL PROTEIN 7.5 g/dL (6.3-8.2)
[2018-08-18 09:33] LABS: LYMPHOCYTE 2 % (20-51); MONOCYTE 3 % (3-10); NEUTROPHILS 86 % (42-75); PARTIAL THROMBOPLASTIN TIME 24.8 SECONDS (21.0-32.0)
[2018-08-18 09:38] LABS: URINE APPEARANCE CLOUDY; URINE BILIRUBIN NEGATIVE (NEGATIVE); URINE BLOOD 50 ery/uL (NEGATIVE); URINE COLOR YELLOW; URINE GLUCOSE NEGATIVE (NEGATIVE); URINE KETONE NEGATIVE (NEGATIVE); URINE LEUKOCYTE ESTERASE 2+ (NEGATIVE); URINE NITRATE NEGATIVE (NEGATIVE); URINE PROTEIN(semi-quant) 1+ mg/dL (NEGATIVE); URINE UROBILINOGEN NORMAL (NORMAL); URINE WBC >50 /hpf (0-3)
[2018-08-18] MEDS ORDERED: VIBRAMYCIN HYC100 MG PO (11:31)
[2018-08-18] MEDS ORDERED: CULTURELLE1 EACH PO (11:31)
[2018-08-18] MEDS ORDERED: NYSTATIN 100MU/M1 ML PO (11:31)
[2018-08-18 11:36] VITALS: BP 182/82
[2018-08-18] MEDS ORDERED: ASPIRIN E.C. 8181 MG PO (13:22)
[2018-08-18] MEDS ORDERED: COLACE100 M1 PO (13:26)
[2018-08-18] MEDS ORDERED: DULCOLAX S10 MG/SUPP PO (13:32)
[2018-08-18] MEDS ORDERED: ARTIFICIAL TEAR1510 OP (13:36)
[2018-08-18] MEDS ORDERED: LOTRISONE CREAM15 G1 TOP (13:37)
[2018-08-18] MEDS ORDERED: ANTIFUNGAL CREA14 GM TOP (13:38)
== END 2018-08-18 11:45 | disposition home or self-care (01) ==
LOC: ED 07:51
PROVIDERS: Physician Assistant
DX: S61.411A Laceration without foreign body of right hand, initial encounter (principal); S80.212A Abrasion, left knee, initial encounter; S00.81XA Abrasion of other part of head, initial encounter; N39.0 Urinary tract infection, site not specified; M54.5 Low back pain; W01.0XXA Fall on same level from slipping, tripping and stumbling without subsequent striking against object, initial encounter; Y92.129 Unspecified place in nursing home as the place of occurrence of the external cause; F03.90 Unspecified dementia, unspecified severity, without behavioral disturbance, psychotic disturbance, mood disturbance, and anxiety; Z79.02 Long term (current) use of antithrombotics/antiplatelets; E11.9 Type 2 diabetes mellitus without complications; I10 Essential (primary) hypertension; I25.10 Atherosclerotic heart disease of native coronary artery without angina pectoris; J43.9 Emphysema, unspecified; R29.810 Facial weakness; Z88.5 Allergy status to narcotic agent; Z88.0 Allergy status to penicillin; Z88.2 Allergy status to sulfonamides; Z88.8 Allergy status to other drugs, medicaments and biological substances; Z79.899 Other long term (current) drug therapy; Z79.4 Long term (current) use of insulin; Z86.73 Personal history of transient ischemic attack (TIA), and cerebral infarction without residual deficits

== ENCOUNTER → 2018-08-26 | Outpatient (CLI) | payer MEDICARE, MEDICAID ==
[2018-08-18 11:36] VITALS: BP 182/82
[~2018-08-26] MED LIST changes: +ANTIFUNGAL CREA14 GM TOP; +ARTIFICIAL TEAR1510 OP; +ASPIRIN E.C. 8181 MG PO; +CULTURELLE1 EACH PO; +DULCOLAX S10 MG/SUPP PO; +NYSTATIN 100MU/M1 ML PO
[2018-08-26 12:03] LABS: URINE APPEARANCE HAZY; URINE COLOR YELLOW
[2018-08-26 12:04] LABS: URINE BILIRUBIN NEGATIVE (NEGATIVE); URINE BLOOD TRACE (NEGATIVE); URINE GLUCOSE NEGATIVE (NEGATIVE); URINE KETONE NEGATIVE (NEGATIVE); URINE LEUKOCYTE ESTERASE 2+ (NEGATIVE); URINE NITRATE NEGATIVE (NEGATIVE); URINE PROTEIN(semi-quant) 1+ mg/dL (NEGATIVE); URINE UROBILINOGEN NORMAL (NORMAL); URINE WBC >50 /hpf (0-3)
== END ==
LOC: LAB 09:50
PROVIDERS: Physician Assistant
DX: N39.0 Urinary tract infection, site not specified (principal)